=== PATIENT | female | born 1970 | race Caucasian/White ===

== ENCOUNTER → 2017-10-05 09:58 | Outpatient (CLI) | payer OTHER, SELFPAY ==
[2017-10-05 10:41] LABS: Hemoglobin A1c 8.3 % (4.2-6.3)
[2017-10-05 10:46] LABS: ALB/GLOB Ratio 0.9 RATIO (0.9-2.4); AST(SGOT) 12 U/L (15-37); Alanine Aminotransfer ALT/SGPT 24 U/L (13-56); Albumin, Serum 3.3 g/dL (3.2-5.0); Alkaline Phosphatase 88 U/L (45-117); Anion Gap 7 (5-15); BUN 14 mg/dL (7-18); BUN/Creat Ratio 15.7 RATIO (10-20); Calcium,Total 8.9 mg/dL (8.5-10.1); Chloride 104 mmol/L (98-107); Cholesterol 173 mg/dL (200); Creatinine, Serum 0.89 mg/dL (0.55-1.02); EST Glomerular Filtration Rate 72 mL/min (>60); Est Glom Filt Rate - Afr Amer 87 mL/min (>60); Globulin 3.8 g/dL (2.2-4.2); Glucose 258 mg/dL (74-106); High Density Lipoprotein 64 mg/dL; Potassium 4.6 mmol/L (3.5-5.1); Protein, Total 7.1 g/dL (6.4-8.2); Sodium Level 141 mmol/L (136-145); Triglycerides 88 mg/dL; Very Low Density Lipoprotein 18 mg/dL (5-40)
== END ==
PROVIDERS: Visit Provider Nurse Practitioner
DX: E11.69 Type 2 diabetes mellitus with other specified complication (principal); E78.5 Hyperlipidemia, unspecified
CPT/HCPCS: 36415; 80053; 80061; 83036

== ENCOUNTER → 2018-05-03 10:48 | Outpatient (CLI) | payer OTHER, SELFPAY ==
[2018-01-06 10:44] VITALS: BMI 40.6
[2018-05-03 11:49] LABS: Hemoglobin A1c 8.6 % (4.2-6.3)
[2018-05-03 11:50] LABS: Microalbumin,Random Urine 5.7 mg/L (NO RANGE EST.); Microalbumin:Creatinine Ratio 5.4 mg/g CRE (<30 mg/g CRE)
[2018-05-03 12:01] LABS: ALB/GLOB Ratio 0.9 RATIO (0.9-2.4); AST(SGOT) 11 U/L (15-37); Alanine Aminotransfer ALT/SGPT 22 U/L (13-56); Albumin, Serum 3.3 g/dL (3.2-5.0); Alkaline Phosphatase 94 U/L (45-117); Anion Gap 5 (5-15); BUN 19 mg/dL (7-18); BUN/Creat Ratio 24.3 RATIO (10-20); Calcium,Total 8.6 mg/dL (8.5-10.1); Chloride 107 mmol/L (98-107); Cholesterol 175 mg/dL (200); Creatinine, Serum 0.78 mg/dL (0.55-1.02); EST Glomerular Filtration Rate 84 mL/min (>60); Est Glom Filt Rate - Afr Amer 101 mL/min (>60); Globulin 3.7 g/dL (2.2-4.2); Glucose 174 mg/dL (74-106); High Density Lipoprotein 60 mg/dL; Sodium Level 141 mmol/L (136-145); Triglycerides 78 mg/dL; Very Low Density Lipoprotein 16 mg/dL (5-40)
[2018-05-03 13:02] LABS: T4 Free Direct 1.67 ng/dL (0.76-1.46); Thyroid Stim Hormone (TSH) 0.05 uIU/mL (0.358-3.74)
--- OUTSIDE RECORDS SUMMARY | 2018-07-05 21:06 | XMS RPT_ITS ---
:1970 Author Organization OHIP Support Name Relationship Address Phone Hinojosa, Christen Unavailable Unavailable + HINOJOSA, CHRISTEN Unavailable [address] + [place] [address] [employer] Unavailable [address] [phone] [place] [address] HIONJOSA, CHRISTEN Unavailable [address] + [place] [address] [employer] Unavailable [address] [phone] [place] [address] Hinojosa, Christen Unavailable Unavailable + Hinojosa, Christen Unavailable Unavailable + HINOJOSA, CHRISTEN Unavailable [address] + [place] [address] [employer] Unavailable [address] +[phone] [place] [address] Hinojosa, Christen Unavailable Unavailable + Hinojosa, Christen Unavailable Unavailable + Hinojosa, Christen Unavailable Unavailable + Hinojosa, Christen Unavailable Unavailable + Hinojosa, Christen Unavailable Unavailable + Hinojosa, Christen Unavailable Unavailable + Hinojosa, Christen Unavailable Unavailable + HINOJOSA, CHRISTEN Unavailable [address] + [place] [address] [employer] Unavailable [address] +[phone] [place] [address] HINOJOSA, CHRISTEN Unavailable [address] + [place] [address] [employer] Unavailable [address] +[phone] [place] [address] Hinojosa, Christen Unavailable Unavailable + HINOJOSA, CHRISTEN Unavailable [address] + [place] [address] [facility] Unavailable [address] + [place] [address] HINOJOSA, CHRISTEN Unavailable [address] + [place] [address] [facility] Unavailable [address] + [place] [address] HinojosaCathie njen Unavailable Unavailable + Care Team Providers Name Role Phone RICH, CONCHA Referring Unavailable RICH, CONCHA Primary Care Unavailable PROVIDER, UNKNOWN Attending Unavailable Chepe Blanchard Attending Unavailable RICH, CONCHA Referring Unavailable RICH, CONCHA Primary Care Unavailable Chepe Blanchard Attending Unavailable RICH, CONCHA Referring Unavailable RICH, CONCHA Primary Care Unavailable RICH, CONCHA Referring Unavailable RICH, CONCHA Primary Care Unavailable Cinthya Richter Attending Unavailable RICH, CONCHA Referring Unavailable RICH, CONCHA Primary Care Unavailable Chey Morris Attending Unavailable Rober Cinthya Attending Unavailable RICH, CONCHA Referring Unavailable RICH, CONCHA Primary Care Unavailable RICH, CONCHA Referring Unavailable RICH, CONCHA Primary Care Unavailable Rober, Cinthya Attending Unavailable Frangiaeri Og Attending Unavailable RICH, CONCHA Referring Unavailable RICH, CONCHA Primary Care Unavailable Frangiamore, Og Attending Unavailable RICH, CONCHA Referring Unavailable Rich, Concha Primary Care Unavailable CHEY GIFFORD Attending Unavailable RICH, CONCHA Referring Unavailable RICH, CONCHA Primary Care Unavailable Rich, Concha Attending Unavailable RICH, CONCHA Referring Unavailable Rich, Concha Primary Care Unavailable OGCHEY VELASCO Attending Unavailable RICH, CONCHA Referring Unavailable RICH, CONCHA Primary Care Unavailable Kimberly Rosales STRINGED INSTRUMENT ASSEMBLER-C Attending Unavailable Kimberly Rosales STRINGED INSTRUMENT ASSEMBLER-C Referring Unavailable SLOAN IRIZARRY Primary Care Unavailable Kimberly Rosales STRINGED INSTRUMENT ASSEMBLER-C Attending Unavailable DOCTOR, OUT OF TOWN Referring Unavailable Kimberly Rosales STRINGED INSTRUMENT ASSEMBLER-C Attending Unavailable DOCTOR, OUT OF TOWN Referring Unavailable Kimberly Rosales STRINGED INSTRUMENT ASSEMBLER-C Attending Unavailable DOCTOR, OUT OF TOWN Referring Unavailable SLOAN IRIZARRY Primary Care Unavailable Kimberly Rosales STRINGED INSTRUMENT ASSEMBLER-C Attending Unavailable Kimberly Rosales STRINGED INSTRUMENT ASSEMBLER-C Referring Unavailable SLOAN IRIZARRY Primary Care Unavailable Kimberly Rosales STRINGED INSTRUMENT ASSEMBLER-C Attending Unavailable DOCTOR, OUT OF TOWN Referring Unavailable Kimberly Rosales STRINGED INSTRUMENT ASSEMBLER-C Attending Unavailable DOCTOR, OUT OF TOWN Referring Unavailable PROBLEMS PROBLEMS DATE TYPE CONDITION / CODE ATTENDING STATUS SOURCE 05/03/2018 Unknown E10.65 - Type 1 Kimberly Rosales Active [facility] diabetes mellitus J STRINGED INSTRUMENT ASSEMBLER-C Community with hyperglycemia / Hospital E10.65(ICD-10) Repository 04/23/2018 Admitting Type 2 diabetes Keshawn Concha [facility] mellitus with System diabetic Repository polyneuropathy / E11.42(ICD-10) 04/23/2018 Admitting Abnormal Keshawn Concha [facility] Diagnosis electromyogram [EMG] System / R94.131(ICD-10) Repository 04/23/2018 Admitting Abnormal results of Keshawn Concha [facility] Diagnosis function studies of System prph nervous sys / Repository R94.138(ICD-10) 11/30/2017 Admitting Bilateral primary Frangiamore, Active [facility] Diagnosis osteoarthritis of Og System knee / M17.0(ICD-10) Repository 11/30/2017 Admitting Presence of insulin Frangiamore, Active [facility] Diagnosis pump (external) Og System (internal) / Repository Z96.41(ICD-10) 11/30/2017 Admitting Allergy status to Frangiamore, Active [facility] Diagnosis narcotic agent Og System status / Repository Z88.5(ICD-10) 11/30/2017 Admitting Allergy status to Frangiamore, Active [facility] Diagnosis penicillin / Og System Z88.0(ICD-10) Repository 11/30/2017 Admitting Allergy status to Frangiamore, Active [facility] Diagnosis other antibiotic Og System agents status / Repository Z88.1(ICD-10) 11/30/2017 Admitting Hypothyroidism, Frangiamore, Active [facility] Diagnosis unspecified / Og System E03.9(ICD-10) Repository 11/30/2017 Admitting Obesity, unspecified Frangiamore, Active [facility] Diagnosis / E66.9(ICD-10) Og System Repository 11/30/2017 Admitting Body mass index Frangiamore, Active [facility] Diagnosis (BMI) 39.0-39.9, Og System adult / Repository Z68.39(ICD-10) 11/30/2017 Admitting Type 1 diabetes Frangiamore, Active [facility] Diagnosis mellitus without Og System complications / Repository E10.9(ICD-10) 11/30/2017 Admitting Essential (primary) Frangiamore, Active [facility] Diagnosis hypertension / Og System I10(ICD-10) Repository 11/30/2017 Admitting Nonrheumatic aortic Frangiamore, Active [facility] Diagnosis (valve) stenosis / Og System I35.0(ICD-10) Repository 11/30/2017 Admitting Hyperlipidemia, Frangiamore, Active [facility] Diagnosis unspecified / Og System E78.5(ICD-10) Repository 11/30/2017 Admitting Derang of post horn Frangiamore, Active [facility] Diagnosis of medial mensc d/t Og System old tear/inj, l knee Repository / M23.222(ICD-10) 11/30/2017 Admitting Other synovitis and Frangiamore, Active [facility] Diagnosis tenosynovitis, left Og System lower leg / Repository M65.862(ICD-10) 11/30/2017 Admitting Chondromalacia, left Frangiamore, Active [facility] Diagnosis knee / Og System M94.262(ICD-10) Repository 11/30/2017 Admitting Patellofemoral Frangiamore, Active [facility] Diagnosis disorders, left knee Og System / M22.2X2(ICD-10) Repository 11/30/2017 Admitting Other internal Frangiamore, Active [facility] Diagnosis derangements of left Og System knee / Repository M23.8X2(ICD-10) 11/30/2017 Admitting Bradycardia, Frangiamore, Active [facility] Diagnosis unspecified / Og System R00.1(ICD-10) Repository 11/30/2017 Admitting Old myocardial Frangiamore, Active [facility] Diagnosis infarction / Og System I25.2(ICD-10) Repository 11/30/2017 Admitting Major depressive Frangiamore, Active [facility] Diagnosis disorder, single Og System episode, unspecified Repository / F32.9(ICD-10) 11/30/2017 Admitting Alcohol dependence, Frangiamore, Active [facility] Diagnosis in remission / Og System F10.21(ICD-10) Repository 11/30/2017 Admitting Acquired absence of Frangiamore, 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 Og System uterus / Repository Z90.710(ICD-10) 11/30/2017 Admitting Oth allergy status, Frangiamore, Active [facility] Diagnosis oth than to drugs Og System and biolg substances Repository / Z91.09(ICD-10) 11/30/2017 Admitting Allergy status to Frangiamore, Active [facility] Diagnosis sulfonamides status Og System / Z88.2(ICD-10) Repository 11/30/2017 Admitting Personal history of Frangiamore, Active [facility] Diagnosis nicotine dependence Og System / Z87.891(ICD-10) Repository 11/25/2017 Admitting Encounter for other Frangiamore, Active [facility] Diagnosis preprocedural Og System examination / Repository Z01.818(ICD-10) 11/25/2017 Admitting Chondromalacia Frangiamore, Active [facility] Diagnosis patellae, left knee Og System / M22.42(ICD-10) Repository 11/25/2017 Admitting Other specified Frangiamore, Active [facility] Diagnosis joint disorders, Og System left knee / Repository M25.862(ICD-10) 11/25/2017 Admitting Derang of unsp Frangiamore, Active [facility] Diagnosis medial meniscus due Og System to old tear/inj, l Repository knee / M23.204(ICD-10) 11/12/2017 Admitting Post-traumatic Arturo, Active [facility] Diagnosis stress disorder, Chey System unspecified / Repository F43.10(ICD-10) 11/12/2017 Admitting Adjustment disorder Arturo, Active [facility] Diagnosis with mixed anxiety Chey System and depressed mood / Repository F43.23(ICD-10) 11/12/2017 Admitting Alcohol dependence, Arturo, Active [facility] Diagnosis uncomplicated / Chey System F10.20(ICD-10) Repository 11/12/2017 Admitting Other psychoactive Morris, Active [facility] Diagnosis substance abuse, Chey System uncomplicated / Repository F19.10(ICD-10) 11/03/2017 Admitting Type 2 diabetes Cinthya Richter Active [facility] Diagnosis mellitus without System complications / Repository E11.9(ICD-10) 11/03/2017 Admitting Pain in left knee / Rober, Cinthya Active [facility] Diagnosis M25.562(ICD-10) System Repository 10/21/2017 Admitting Pain in unspecified Burkam, Active [facility] Diagnosis knee / Chepe System M25.569(ICD-10) Repository 10/05/2017 Unknown E10.9 - Type 1 Shook, Kimberly Active [facility] diabetes mellitus J STRINGED INSTRUMENT ASSEMBLER-C Community without Hospital complications / Repository E10.9(ICD-10) 10/05/2017 Unknown E11.69 - Type 2 Shook, Kimberly Active [facility] diabetes mellitus J STRINGED INSTRUMENT ASSEMBLER-C Community with other specified Hospital complication / Repository E11.69(ICD-10) 10/05/2017 Unknown E78.5 - Shook, Kimberly Active [facility] Hyperlipidemia, J STRINGED INSTRUMENT ASSEMBLER-C Community unspecified / Hospital E78.5(ICD-10) Repository 10/05/2017 Unknown E10.69 - Type 1 Shook, Kimberly Active [place] diabetes mellitus J STRINGED INSTRUMENT ASSEMBLER-C Community with other specified Hospital complication / Repository E10.69(ICD-10) 09/02/2017 Admitting Unspecified Burkam, Active [facility] Diagnosis osteoarthritis, Chepe System unspecified site / Repository M19.90(ICD-10) 06/06/2017 Admitting Sprain of Unknown Active [facility] Diagnosis unspecified ligament System of left ankle, init Repository encntr / S93.402A(ICD-10) 06/06/2017 Admitting Abrasion of left Unknown Active [facility] Diagnosis elbow, initial System encounter / Repository S50.312A(ICD-10) 06/06/2017 Admitting Fall (on)(from) Unknown Active [facility] Diagnosis sidewalk curb, System initial encounter / Repository W10.1XXA(ICD-10) 06/06/2017 Admitting Disorder of thyroid, Unknown Active [facility] Diagnosis unspecified / System E07.9(ICD-10) Repository 06/06/2017 Admitting terminal operations supervisor (current) Unknown Active [facility] Diagnosis use of insulin / System Z79.4(ICD-10) Repository 06/06/2017 Admitting terminal operations supervisor (current) Unknown Active [facility] Diagnosis use of aspirin / System Z79.82(ICD-10) Repository 06/06/2017 Admitting Other nonmedicinal Unknown Active [facility] Diagnosis substance allergy System status / Repository Z91.048(ICD-10) 06/06/2017 Admitting Unspecified injury Unknown Active [facility] Diagnosis of left ankle, System initial encounter / Repository S99.912A(ICD-10) PROCEDURES PROCEDURES No Procedure Records FoundRESULTS RESULTS ENDOCRINOLOGY VISIT Observed: 05/03/2018 Status: F Source: [place] REPORT 7:23 PM [facility] REPOSITORY [facility] [address] [place] [address] [address] [place] [address] OFFICE VISIT Date of Service: 05/03/18 MR#: [id number] Acct: [id number] Name: ISADORA LAYTON Rep #: [id number] : 1970 Provider: Kimberly Rosales NP Age/Sex: 48/F [place] [facility] [place]: Signed HPI History of present illness Isadora Layton is a 48 year old female who presents for follow up of diabetes type 1. Diagnosed in 1996. Continues on insulin pump therapy. Changes infusion site every 3 days. Denies any issues with skin irritation or infection. Reports checking BG consistently Has recently started 670g with sensor and is using automode. Is happy with the pump and feels her control has improved. She has made some changes in her I/C ratio which has helped. Has had issues with her sensors . Reports sensors set for alarm at low but yet she is getting alarms before you. She feels the sensor and alarms keep her up at night. She states she does calibrate before bedtime. Basal rate 12m=1.4 I/C ratio 12m=5.5 , 2pm=6.0 ISF=35 At time of visit: -Pt denies symptoms of hypertensive emergency (CP,SOB,DUNCAN, or blurred vision) and hypotension(dizziness or lightheadedness) -Pt denies symptoms of hypoglycemia ( sweaty, confusion, anxiety, tremor, hunger, palpitations) and hyperglycemia ( polydipsia, polyuria) -Pt denies potential medication adverse effect. Hypoglycemia Aware of hypoglycemia: When awake Able to self treat low BG: Yes Frequent low Blood sugar: No Has supply of glucagon: Yes Diet 3 meals daily, snacks Occ skips breakfast. 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 am average 148 12n 140-170 5pm 150-170 9pm 138-150 Exam Const General: no acute distress, comfortable Nutritional Appearance: overweight Orientation: oriented x3 HENVT Head: normal to inspection, atraumatic Ears: hearing grossly normal bilaterally Face and sinus: normal facial exam Mouth: oral mucosae normal, moist mucous membranes Teeth and gingiva: dentition normal Eyes General: appearance normal, both eyes and all related structures Eyelids: eyelids normal Conjunctivae: conjunctivae normal Sclera: sclerae normal Pupils: PERRL Neck Neck: normal visual inspection, no lymphadenopathy Resp Effort AND Inspection: normal respiratory effort, able to speak in complete sentences, symmetric chest movement Auscultation: Bilateral: Clear to Auscultation Cardio Rate: regular rate Rhythm: regular rhythm Heart Sounds: S1 normal, S2 normal, no gallops, no murmurs GI Inspection: normal to inspection, obesity Auscultation: normal bowel sounds Palpation: soft Skin General: no rashes or lesions noted Wounds: no wounds Diabetic Foot Pulses: L dorsalis pedis pulse: normal, R dorsalis pedis pulse: normal Monofilament test: Left foot: normal, Right foot: normal Neuro General: gait normal Cognition: normal cognition Speech: speech normal Gait: normal gait Extrem General: normal to inspection, normal capillary refill Psych Appearance: well kempt Mental Status: mental status grossly normal Mood: congruent mood Affect: normal affect Speech and Movement: speech and movement normal Attitude: cooperative Thought Process: normal Thought Content: normal Judgment: judgment good Type: type 1, insulin-requiring Glucose control symptoms: Reports nocturnal hypoglycemia Weight and fatigue symptoms: Denies snoring Cardiopulmonary symptoms: Denies chest pain at rest, dyspnea on exertion, lightheadedness or myalgias GI symptoms: Denies constipation, diarrhea, nausea/dyspepsia or vomiting Other symptoms: Denies blurry vision or change in vision Pertinent visit history: Denies recent hospital admission, recent visit to ER, recent DKA or recent 911 calls Intake Vital Signs05/03/18 Height 5 ft 3 in 05/03/18 Weight: 230 lb 6 oz 05/03/18 Body Mass Index (BMI) 40.8 05/03/18 Blood Pressure 153/104 H 05/03/18 Blood Pressure Location Lt popliteal 05/03/18 Blood Pressure Position Sitting Intake Visit Reasons: Diabetes follow-up 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 Accompanied by: Self Allergies codeine Allergy (Severe, Verified 05/03/18 11:23) Unknown Penicillins Allergy (Severe, Verified 05/03/18 11:23) Unknown Sulfa (Sulfonamide Antibiotics) Allergy (Severe, Verified 05/03/18 11:23) Unknown Medications blood sugar diagnostic strips See Dose Instructions .ROUTE .MEDSUPPLY #20 ea 05/11/17 [History Confirmed 05/03/18] levothyroxine 150 mcg tablet See Rx Instructions PO .COMPLEX #30 tab 06/29/17 [Rx Confirmed 05/03/18] insulin aspart U- 100 100 unit/mL subcutaneous solution See Rx Instructions SC QDAY #30 ml 10/19/17 [Rx Confirmed 05/03/18] flaxseed oil 1,000 mg capsule 1,000 mg PO BID 01/06/18 [History Confirmed 05/03/18] omega-3 fatty acids 1,250 mg capsule 1,250 mg PO DAILY 01/06/18 [History Confirmed 05/03/18] Nurse's Note: blood sugars : low : 40's high : 398 [facility] Medical History Achilles bursitis (Acute) Corns and callosities (Acute) Diabetes type 1, controlled (Acute) H/O alcohol abuse (Acute) H/O: hysterectomy (Acute) Heart murmur (Acute) Hypothyroidism (Acute) Seasonal allergies (Acute) Surgical History S/P arthroscopic surgery of left knee (Acute) Family History Mother Breast cancer Social History Smoking Status: Former smoker quit date: 04/13/15 second hand exposure: No alcohol intake: former substance use type: does not use ROS Const Constitutional: Positive for fatigue; no anorexia, body ache, chills, fever(s), frequent falls, decreased energy, malaise, night sweats, weakness, weight change, sleep problems, abnormal sleep pattern, change in appetite, other, headache(s), snoring or excessive sweating Eyes Eyes: No blurry vision, change in vision, double vision, discharge, dry eyes, bulging eyes, floaters, visual disturbances, eye pain, light sensitivity, spots in vision, tunnel vision or other ENT ENT: Positive for nasal congestion, sinus pressure, sinus pain and nasal discharge; no abnormal hearing, ear pain, ear discharge, ear pressure, hearing loss, tinnitus, dizziness/vertigo, balance problems, nosebleed/epistaxis, nasal obstruction, nose pain, post nasal drip, headache(s), facial pain, dental pain, dry mouth, bad breath, hoarseness, lip swelling, mouth lesions, mouth pain, sore throat, tongue swelling, throat swelling, other, difficulty swallowing or neck pain Resp Respiratory: Positive for cough and wheezing; no change in phlegm color, chest congestion, excessive phlegm production, hemoptysis, pain on inspiration, shortness of breath, pain with cough, snoring, stridor or other Cardio Cardiology: No chest pain at rest, chest pain with exertion, leg pain with exertion, excessive sweating, shortness of breath, dyspnea on exertion, generalized swelling, irregular heart rhythm, lightheadedness, orthopnea, radiating jaw, neck or arm pain, fast heart rate, slow heart rate, palpitations or other Gastro GI: No abdominal pain, belching, bloating, change in bowel habits, change in stool character, coffee ground emesis, constipation, cramping, diarrhea, heartburn, difficulty swallowing, feeling full early, excessive flatus, incontinent of stools, Vomiting blood/hematemesis, blood in stool, loose stools, Black,tarry stools, nausea/dyspepsia, pain with swallowing, vomiting or other Genitourinary-Female: No difficulty urinating, burning urination, painful urination, urinary incontinence, urinary frequency, urinary urgency, urinary hesitancy, urinary retention, blood in urine, Frequent nighttime urination/ nocturia, post void dribbling, suprapubic fullness, side pain, sexual problems, genital lesions, genital itching, hot flashes, abnormal periods, abnormal vaginal bleeding, absent period, painful periods, light periods, heavy periods, difficulty getting , painful intercourse, pelvic pain, vaginal dryness, vaginal odor, Vaginal Itching or other Musc Musculoskeletal: Positive for tingling (bilat feet d/t nueropathy), other (bilat feet feel like they are on fire d/t neuropathy) and numbness (bilat feet d/t neuropathy); no abnormal walking, joint pain, back pain, deformity, joint swelling, limited range of motion, loss of height, muscle cramps, muscle weakness, decreased muscle mass, body aches, neck pain, radiating pain into limb or stiffness Skin Skin: No acne, hair loss, change in hair, nail changes, boil, change in skin color, dry skin, redness, excessive hair growth, yellowing of the skin, lesions, itching, rash, skin pain, skin ulcer, sores, skin swelling, wounds or other Breast Breast: No other Neuro Neurology: Positive for tingling (bilat feet d/t nueropathy) and numbness (bilat feet d/t neuropathy); no frequent falls, weakness, visual disturbances, abnormal hearing, headache(s) or abnormal walking Psych Psychiatric: No abnormal sleep pattern, No change in appetite Endo Endocrine: Positive for fatigue; no other or excessive sweating Aller/Imm Allergy/Immunologic: Positive for wheezing; no lip swelling, tongue swelling, throat swelling or itchy eyes Assessment AND Plan 1. Uncontrolled type 1 diabetes mellitus, with long-term current use of insulin E10.65 Plan REview of download notes she has frequent drop in BG over night. But also notes she is giving correction near bedtime and then has significant drop in BG. We reviewed pattern. Enc not to over correct high Bg. Also frequent low after lunch. I/C ratio adjusted. Enc to call medtronic for sensor replacement. Enc to download insulin pump between visits for review. Labs today Orders Orders: 2. Hyperlipidemia due to type 1 diabetes mellitus E10.69; E78.5 Plan Reports taking flaxseed as discussed. Plan Detail Additional Comments 1. Please schedule follow up in 3 months. 2. Lab work one week before appointment. 3. Discussed importance of regular exercise and recommend starting or continuing a regular exercise program for good health. 4. The patient was encouraged to lose weight for good health 5. The importance of monitoring blood sugar regularly was reviewed. 6. The importance of monitoring the HBA1c level regularly was reviewed. 7. The importance of prper foot care and regularly checking feet to prevent sores and loss of limbs was reviewed. 8. The importance of keeping BP at or below 130/80 to prevent stroke, heart attacks, kidney failure, blindness was reviewed. Spent approximately 30 minutes with patient with over 50% of time spent in discussion and counseling regarding medication adjustment, symptoms and treatment of hypoglycemia, diet adherence, and checking BG before driving. Coding Level of Care Code Off vis,est,level 4 Diagnoses Uncontrolled type 1 diabetes mellitus, with long-term current use of insulin E10.65 Hyperlipidemia due to type 1 diabetes mellitus E10.69; E78.5 05/03/181922 <Electronically signed by Kimberly FERRARI> Date Kimberly FERRARI Cosigner Signature: Date (if applicable) CC: THYROID STIM HORMONE Collected: 05/03/2018 Status: F Source: [place] (TSH) 12:36 PM [facility] REPOSITORY TYPE CODE TESTS RESULT OUT OF RANGE REFERENCE UNITS LAB L501.9520 0.358-3.74 uIU/mL Low TSH 0.05 Performed By: #### L501.9520, L506.0400 #### [facility] [address] [facility]. [place], [place], [address] T4 FREE DIRECT Collected: 05/03/2018 Status: F Source: [place] 12:36 PM [facility] REPOSITORY TYPE CODE TESTS RESULT OUT OF REFERENCE UNITS RANGE LAB L506.0400 0.76-1.46 ng/dL High T4 FREE 1.67 DIRECT Performed By: #### L501.9520, L506.0400 #### [facility] [address] [place], [address] HEMOGLOBIN A1C Collected: 05/03/2018 Status: F Source: [place] 10:59 AM [facility] REPOSITORY TYPE CODE TESTS RESULT OUT OF RANGE REFERENCE UNITS LAB L501.9985 4.2-6.3 % High HGB A1C 8.6 Performed By: #### L501.9985 #### [facility] [address] [facility] [place], [address] MICROALB:CREAT Collected: 05/03/2018 Status: F Source: [facility] UR 10:59 AM [facility] REPOSITORY TYPE CODE TESTS RESULT OUT OF RANGE REFERENCE UNITS LAB L501.1200 NO RANGE EST. mg/dL Normal UR CREAT 105.00 LAB L502.0500 NO RANGE EST. mg/L Normal 5.7 MICROALBUMIN ,UR LAB L502.0600 <30 mg/g CRE mg/g CRE Normal 5.4 MALB:CREAT Performed By: #### L502.0250 #### [facility] [address] [place], [address] COMPREHENSIVE METABOLIC Collected: 05/03/2018 Status: F Source: [place] PROFIL 10:59 AM [facility] REPOSITORY TYPE CODE TESTS RESULT OUT OF RANGE REFERENCE UNITS LAB L501.0100 74-106 mg/dL High GLU 174 Result Comment: Fasting Glucose result greater than or equal to 126 mg/dL suggests DIABETES MELLITUS per A.D.A. criteria. Please note revised GLUCOSE reference range effective 2017. LAB L501.1000 7-18 mg/dL High BUN 19 LAB L501.1100 0.55-1.02 mg/dL Normal CREAT,SERUM 0.78 Result Comment: The validity of the calculated GFR AND GFRAA in patients over 70 years has not been determined. Clinical correlation is essential. LAB L501.1110 >60 mL/min Normal EST GFR 84 Result Comment: Non- GFR Calc LAB L501.1115 >60 mL/min Normal EST GFR - AA 101 Result Comment: GFR Calc LAB L501.1300 10-20 RATIO High BUN/CRE 24.3 LAB L501.1500 6.4-8.2 g/dL T Normal PROT 7.0 LAB L501.1800 3.2-5.0 g/dL Normal ALB 3.3 LAB L501.1950 2.2-4.2 g/dL Normal GLOB 3.7 LAB L501.2000 0.9-2.4 RATIO Normal A/G 0.9 LAB L501.2200 8.5-10.1 mg/dL CA Normal 8.6 LAB L501.4100 15-37 U/L Low AST 11 LAB L501.4305 45-117 U/L Normal ALK P 94 LAB L501.4405 13-56 U/L Normal ALT 22 LAB L501.4600 0.20-1.00 mg/dL T Normal BILI 0.40 LAB L501.5300 136-145 mmol/L NA Normal 141 LAB L501.5600 3.5-5.1 mmol/L K Normal 4.0 LAB L501.5900 98-107 mmol/L CL Normal 107 LAB L501.6100 21.0-32.0 mmol/L Normal CO2 29.0 LAB L501.6200 5-15 Normal GAP 5 Performed By: #### L500.4050, L500.4100 #### [facility] [address] [place], [place], [id number] LIPID PROFILE Collected: 05/03/2018 Status: F Source: [place] 10:59 AM [facility] REPOSITORY TYPE CODE TESTS RESULT OUT OF RANGE REFERENCE UNITS LAB L501.4900 200 mg/dL Normal CHOL 175 Result Comment: <200 mg/dL Desirable 200-240 mg/dL Borderline >240 mg/dL High Risk LAB L501.5000 mg/dL Normal TRIG 78 Result Comment: The drugs N-Acetylcysteine and Metamizole may falsely depress this assay. Serum Triglycerides Reference Interval Normal <150 mg/dL Borderline high 150 - 199 mg/dL High 200 - 499 mg/dL Very High > or = 500 mg/dL LAB L501.6400 mg/dL Normal HDL 60 Result Comment: The drugs N-Acetylcysteine and Metamizole may falsely depress this assay. Reference Range HDL <40 mg/dL Low HDL Cholesterol HDL >or= 60 mg/dL High HDL Cholesterol LAB L501.6500 0-130 mg/dL Normal LDL 99 LAB L501.6600 5-40 mg/dL Normal VLDL 16 Performed By: #### L500.4050, L500.4100 #### [facility] [address] [place], [place], [id number] ENDOCRINOLOGY VISIT Observed: 01/10/2018 Status: F Source: [place] REPORT 11:03 AM [facility] REPOSITORY [facility] [address] [place] [address] OFFICE VISIT Date of Service: 01/06/18 MR#: [id number] Acct: [id number] Name: ISADORA LAYTON Rep #: [id number] : 1970 Provider: Kimberly Rosales NP Age/Sex: 47/F Location: [facility] Status: Signed HPI History of present illness History of present illness Isadora Layton is a 47 year old female who presents for follow up of diabetes type 1. Diagnosed in 1996. Continues on insulin pump therapy. Changes infusion site every 3 days. Denies any issues with skin irritation or infection. Reports checking BG consistently Has recently started 670g with sensor and is using automode. Is happy with the pump and feels her control has improved. She has made some changes in her I/C ratio which has helped. Has had issues with her sensor for the last few weeks. Able to get sensor to initiate today for the first time in several days. Basal rate 12m=1.4 I/C ratio 12m=5.5 , 2pm=6.0 ISF=35 At time of visit: -Pt denies symptoms of hypertensive emergency (CP,SOB,DUNCAN, or blurred vision) and hypotension(dizziness or lightheadedness) -Pt denies symptoms of hypoglycemia ( sweaty, confusion, anxiety, tremor, hunger, palpitations) and hyperglycemia ( polydipsia, polyuria) -Pt denies potential medication adverse effect. Hypoglycemia Aware of hypoglycemia: When awake Able to self treat low BG: Yes Frequent low Blood sugar: No Has supply of glucagon: Yes Diet 3 meals daily, snacks Occ skips breakfast. 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 am average 148 12n 140-170 5pm 150-170 9pm 138-150 Exam Const General: no acute distress, comfortable Nutritional Appearance: overweight Orientation: oriented x3 HENMT Head: normal to inspection, atraumatic Ears: hearing grossly normal bilaterally Face and sinus: normal facial exam Mouth: oral mucosae normal, moist mucous membranes Teeth and gingiva: dentition normal Eyes General: appearance normal, both eyes and all related structures Eyelids: eyelids normal Conjunctivae: conjunctivae normal Sclera: sclerae normal Pupils: PERRL Neck Neck: normal visual inspection, no lymphadenopathy Resp Effort AND Inspection: normal respiratory effort, able to speak in complete sentences, symmetric chest movement Auscultation: Bilateral: Clear to Auscultation Cardio Rate: regular rate Rhythm: regular rhythm Heart Sounds: S1 normal, S2 normal, no gallops, no murmurs GI Inspection: normal to inspection, obesity Auscultation: normal bowel sounds Palpation: soft Skin General: no rashes or lesions noted Wounds: no wounds Diabetic Foot Pulses: L dorsalis pedis pulse: normal, R dorsalis pedis pulse: normal Monofilament test: Left foot: normal, Right foot: normal Neuro General: gait normal Cognition: normal cognition Speech: speech normal Gait: normal gait Extrem General: normal to inspection, normal capillary refill Psych Appearance: well kempt Mental Status: mental status grossly normal Mood: congruent mood Affect: normal affect Speech and Movement: speech and movement normal Attitude: cooperative Thought Process: normal Thought Content: normal Judgment: judgment good Weight and fatigue symptoms: Denies snoring Cardiopulmonary symptoms: Denies chest pain at rest, dyspnea on exertion, lightheadedness or myalgias GI symptoms: Denies constipation, diarrhea, nausea/dyspepsia or vomiting Other symptoms: Denies blurry vision or change in vision Intake Vital Signs01/06/18 Height 5 ft 3 in 01/06/18 Weight: 229 lb 4 oz 01/06/18 Body Mass Index (BMI) 40.6 01/06/18 Blood Pressure 140/90 H 01/06/18 Blood Pressure Location Rt popliteal 01/06/18 Blood Pressure Position Sitting Intake Visit Reasons: FOLLOW 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 Accompanied by: Self Allergies codeine Allergy (Severe, Verified 01/06/18 10:41) Unknown Penicillins Allergy (Severe, Verified 01/06/18 10:41) Unknown Sulfa (Sulfonamide Antibiotics) Allergy (Severe, Verified 01/06/18 10:41) Unknown Medications blood sugar diagnostic strips See Dose Instructions .ROUTE .MEDSUPPLY #20 ea 05/11/17 [History Confirmed 01/06/18] levothyroxine 150 mcg tablet See Rx Instructions PO .COMPLEX #30 tab 06/29/17 [Rx Confirmed 01/06/18] insulin aspart U- 100 100 unit/mL subcutaneous solution See Rx Instructions SC QDAY #30 ml 10/19/17 [Rx Confirmed 01/06/18] flaxseed oil 1,000 mg capsule 1,000 mg PO BID 01/06/18 [History Confirmed 01/06/18] omega-3 fatty acids 1,250 mg capsule 1,250 mg PO DAILY 01/06/18 [History Confirmed 01/06/18] Nurse's Note: blood sugars : low : 56 high :467 [facility] Medical History Achilles bursitis (Acute) Corns and callosities (Acute) Diabetes type 1, controlled (Acute) H/O alcohol abuse (Acute) Heart murmur (Acute) Hypothyroidism (Acute) Seasonal allergies (Acute) Surgical History H/O: hysterectomy (Acute) S/P arthroscopic surgery of left knee (Acute) Family History Mother Breast cancer Social History Smoking Status: Former smoker quit date: 04/13/15 second hand exposure: No alcohol intake: former substance use type: does not use ROS Const Constitutional: No anorexia, body ache, chills, fatigue, fever(s), frequent falls, decreased energy, malaise, night sweats, weakness, weight change, sleep problems, abnormal sleep pattern, change in appetite, other, headache(s), snoring or excessive sweating Eyes Eyes: No blurry vision, change in vision, double vision, discharge, dry eyes, bulging eyes, floaters, visual disturbances, eye pain, light sensitivity, spots in vision, tunnel vision or other ENT ENT: Positive for nasal congestion and nasal discharge; no abnormal hearing, ear pain, ear discharge, ear pressure, hearing loss, tinnitus, dizziness/vertigo, balance problems, nosebleed/epistaxis, nasal obstruction, nose pain, sinus pressure, sinus pain, post nasal drip, headache(s), facial pain, dental pain, dry mouth, bad breath, hoarseness, lip swelling, mouth lesions, mouth pain, sore throat, tongue swelling, throat swelling, other, difficulty swallowing or neck pain Resp Respiratory: No cough, change in phlegm color, chest congestion, excessive phlegm production, hemoptysis, pain on inspiration, shortness of breath, pain with cough, snoring, stridor, wheezing or other Cardio Cardiology: No chest pain at rest, chest pain with exertion, leg pain with exertion, excessive sweating, shortness of breath, dyspnea on exertion, generalized swelling, irregular heart rhythm, lightheadedness, orthopnea, radiating jaw, neck or arm pain, fast heart rate, slow heart rate, palpitations or other Gastro GI: No abdominal pain, belching, bloating, change in bowel habits, change in stool character, coffee ground emesis, constipation, cramping, diarrhea, heartburn, difficulty swallowing, feeling full early, excessive flatus, incontinent of stools, Vomiting blood/hematemesis, blood in stool, loose stools, Black,tarry stools, nausea/dyspepsia, pain with swallowing, vomiting or other Genitourinary-Female: No difficulty urinating, burning urination, painful urination, urinary incontinence, urinary frequency, urinary urgency, urinary hesitancy, urinary retention, blood in urine, Frequent nighttime urination/ nocturia, post void dribbling, suprapubic fullness, side pain, sexual problems, genital lesions, genital itching, hot flashes, abnormal periods, abnormal vaginal bleeding, absent period, painful periods, light periods, heavy periods, difficulty getting , painful intercourse, pelvic pain, vaginal dryness, vaginal odor, Vaginal Itching or other Musc Musculoskeletal: No abnormal walking, joint pain, back pain, deformity, joint swelling, limited range of motion, loss of height, muscle cramps, muscle weakness, decreased muscle mass, body aches, neck pain, numbness, radiating pain into limb, stiffness, tingling or other Skin Skin: No acne, hair loss, change in hair, nail changes, boil, change in skin color, dry skin, redness, excessive hair growth, yellowing of the skin, lesions, itching, rash, skin pain, skin ulcer, sores, skin swelling, wounds or other Breast Breast: No other Neuro Neurology: No frequent falls, weakness, visual disturbances, abnormal hearing, headache(s), abnormal walking, numbness or tingling Psych Psychiatric: No abnormal sleep pattern, No change in appetite Endo Endocrine: No fatigue, other or excessive sweating Aller/Imm Allergy/Immunologic: No lip swelling, tongue swelling, throat swelling, wheezing or itchy eyes Assessment AND Plan Problems 1. Uncontrolled type 1 diabetes mellitus, with long-term current use of insulin E10.65 2. Hypothyroidism (acquired) E03.9 3. Hyperlipidemia due to type 1 diabetes mellitus E10.69; E78.5 Plan Diabetes: Overcorrecting, vito at night. I have changed her correction to 1-50. She alsoneeds lower basal set during sleep. Reset basal to 12m=1.3, 6am=1.4, 10pm=1.3 Thyroid: TSH 0.72. No change in dosage. Hyperlipidemia: Tolerating flaxseed well. LDL 91. Not willing to use statin. Orders Orders: Medications New: Plan Detail Additional Comments 1. Please schedule follow up in 3 months. 2. Lab work one week before appointment. 3. Discussed importance of regular exercise and recommend starting or continuing a regular exercise program for good health. 4. The patient was encouraged to lose weight for good health 5. The importance of monitoring blood sugar regularly was reviewed. 6. The importance of monitoring the HBA1c level regularly was reviewed. 7. The importance of prper foot care and regularly checking feet to prevent sores and loss of limbs was reviewed. 8. The importance of keeping BP at or below 130/80 to prevent stroke, heart attacks, kidney failure, blindness was reviewed. Spent approximately 30 minutes with patient with over 50% of time spent in discussion and counseling regarding medication adjustment, symptoms and treatment of hypoglycemia, diet adherence, and checking BG before driving. Coding Level of Care Code Off vis,est,level 4 Diagnoses Uncontrolled type 1 diabetes mellitus, with long-term current use of insulin E10.65 Hypothyroidism (acquired) E03.9 Hyperlipidemia due to type 1 diabetes mellitus E10.69; E78.5 01/10/18 1103 <Electronically signed by Kimberly FERRARI> Date Kimberly FERRARI Cosigner Signature: Date (if applicable) CC: GLUCOSE,BEDSIDE Collected: 11/30/2017 Status: F Source: [facility] 9:00 AM SYSTEM REPOSITORY TYPE CODE TESTS RESULT OUT OF RANGE REFERENCE UNITS LAB BGLU 70-100 mg/dL High 120 Glucose,Beds froylan Result Comment: Test performed by glucose meter. Results may be 10%-15% lower than serum/plasma values. (CLIA ID [id number]) Performed By: #### BGLU #### [facility] [address] [facility] [place] [address] GLUCOSE,BEDSIDE Collected: 11/30/2017 Status: F Source: [facility] 6:39 AM SYSTEM REPOSITORY TYPE CODE TESTS RESULT OUT OF RANGE REFERENCE UNITS LAB BGLU 70-100 mg/dL High 131 Glucose,Beds froylan Result Comment: Test performed by glucose meter. Results may be 10%-15% lower than serum/plasma values. (CLIA ID [id number]) Performed By: #### BGLU #### [facility] [address] [facility] [place] [address] MRI LOW EXT JOINT W/O Observed: 10/22/2017 Status: F Source: [facility] CONTRAST LEFT 7:20 AM SYSTEM REPOSITORY Patient Name: ISADORA LAYTON MRI Exam Date/Time 10/21/2017 16:23:20 EDT Exam MRI Low Ext Joint w/o Contrast Left Ordering Physician MD BLANCHARD BENJAMIN Accession Number [id number] CPT4 Codes 45391 () Reason For Exam pain Report Examination: MRI left knee Clinical Indication: Knee pain concern for meniscal tear Comparison: None Findings: Multiplanar multisequence MRI images were obtained through the left knee without intravenous contrast. No osseous contusion or fracture. Oblique tear at the root posterior horn which nearly transects the meniscus best seen on sagittal series 5 image 12 and coronal series 8 image 15. Mild meniscal myxoid degeneration. Medial compartment articular cartilage demonstrates mild articular cartilage thinning. Cruciate, capsular, and collateral ligaments intact. Extensor mechanism demonstrates no abnormality. Minimal prepatellar soft tissue swelling. Lateral meniscus normal in morphology and signal without tear. Lateral compartment articular cartilage demonstrates mild articular cartilage thinning. Small osteophyte central femoral condyle. Tiny knee joint effusion. No De Anda's cyst. Patellofemoral articular cartilage demonstrates moderate articular cartilage thinning. There are small full-thickness fissures along the lateral facet more superiorly with marginal chondromalacia. Tiny patellofemoral marginal osteophytes. Minimal degenerative subchondral edema. 1.5 cm offset between the tibial tubercle and trochlear groove. Impression: 1. Oblique vertical tear root posterior horn medial meniscus nearly transecting the meniscus with minimal meniscal degeneration. 2. Moderate patellofemoral articular cartilage thinning with more focal chondromalacia and full-thickness fissuring lateral facet superiorly. 3. Trace knee joint effusion. Report Dictated on Workstation: [id number] Final Dictated: 10/22/2017 7:20 am Dictating Physician: MD LIZARRAGA ANTHONY J Signed Date and Time: 10/22/2017 7:24 am Signed by: MD LIZARRAGA ANTHONY J Transcribed Date and Time: 10/22/2017 7:20 ENDOCRINOLOGY VISIT Observed: 10/18/2017 Status: F Source: [place] REPORT 10:12 AM [facility] REPOSITORY [facility] [address] [place] [address]. [address] [place] [address] OFFICE VISIT Date of Service: 10/05/17 MR#: [id number] Acct: [id number] Name: ISADORA LAYTON Rep #: [id number] : 1970 Provider: Kimberly Rosales NP Age/Sex: 47/F Location[place] [facility] Status: Signed HPI History of present illness HPI History of present illness Isadora Layton is a 47 year old female who presents for follow up of diabetes type 1. Diagnosed in 1996. Continues on insulin pump therapy. Changes infusion site every 3 days. Denies any issues with skin irritation or infection. Reports checking BG consistently Has recently started 670g with sensor and is using automode. Is happy with the pump and feels her control has improved. She has made some changes in her I/C ratio which has helped. Basal rate 12m=1.4 I/C ratio 12m=5.5 , 2pm=6.0 ISF=35 At time of visit: -Pt denies symptoms of hypertensive emergency (CP,SOB,DUNCAN, or blurred vision) and hypotension(dizziness or lightheadedness) -Pt denies symptoms of hypoglycemia ( sweaty, confusion, anxiety, tremor, hunger, palpitations) and hyperglycemia ( polydipsia, polyuria) -Pt denies potential medication adverse effect. Hypoglycemia Aware of hypoglycemia: When awake Able to self treat low BG: Yes Frequent low Bloo sugar: No Has supply of glucagon: Yes Diet 3 meals daily, snacks Occ skips breakfast. 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 Insulin pump download 180 70 % time Having issues with pump asking for calibration all night long. Type: type 1 Glucose control symptoms: Reports high post-meal glucose Weight and fatigue symptoms: Denies snoring Cardiopulmonary symptoms: Reports chest pain with activity; denies myalgias, chest pain at rest, dyspnea on exertion or lightheadedness GI symptoms: Denies constipation, diarrhea, nausea/dyspepsia or vomiting Other symptoms: Denies blurry vision or change in vision Self monitoring: Yes Glucometer type: Contour next. Dietary compliance: Diabetes: good Diabetes education in past year: Yes Glucose testing: demonstrates correct use of meter, understands testing schedule Exam Const General: no acute distress, comfortable Nutritional Appearance: overweight Orientation: oriented x3 HENMT Head: normal to inspection, atraumatic Ears: hearing grossly normal bilaterally Face and sinus: normal facial exam Mouth: oral mucosae normal, moist mucous membranes Teeth and gingiva: dentition normal Eyes General: appearance normal, both eyes and all related structures Eyelids: eyelids normal Conjunctivae: conjunctivae normal Sclera: sclerae normal Pupils: PERRL Neck Neck: normal visual inspection, no lymphadenopathy Resp Effort AND Inspection: normal respiratory effort, able to speak in complete sentences, symmetric chest movement Auscultation: Bilateral: Clear to Auscultation Cardio Rate: regular rate Rhythm: regular rhythm Heart Sounds: S1 normal, S2 normal, no gallops, no murmurs GI Inspection: normal to inspection, obesity Auscultation: normal bowel sounds Palpation: soft Skin General: no rashes or lesions noted Wounds: no wounds Diabetic Foot Pulses: L dorsalis pedis pulse: normal, R dorsalis pedis pulse: normal Monofilament test: Left foot: normal, Right foot: normal Neuro General: gait normal Cognition: normal cognition Speech: speech normal Gait: normal gait Extrem General: normal to inspection, normal capillary refill Psych Appearance: well kempt Mental Status: mental status grossly normal Mood: congruent mood Affect: normal affect Speech and Movement: speech and movement normal Attitude: cooperative Thought Process: normal Thought Content: normal Judgment: judgment good Weight and fatigue symptoms: Denies snoring Cardiopulmonary symptoms: Denies myalgias GI symptoms: Denies constipation, diarrhea, nausea/dyspepsia or vomiting Other symptoms: Denies blurry vision or change in vision Intake Vital Signs10/05/17 Height 5 ft 3 in 10/05/17 Weight: 224 lb 4 oz 10/05/17 Body Mass Index (BMI) 39.7 10/05/17 Blood Pressure 146/90 10/05/17 Blood Pressure Location Lt popliteal 10/05/17 Blood Pressure Position Sitting Intake Visit Reasons: Diabetes Mellitus Type 1 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 Accompanied by: Self Is patient in pain?: No Allergies codeine Allergy (Severe, Verified 10/05/17 10:45) Unknown Penicillins Allergy (Severe, Verified 10/05/17 10:45) Unknown Sulfa (Sulfonamide Antibiotics) Allergy (Severe, Verified 10/05/17 10:45) Unknown Medications blood sugar diagnostic strips See Dose Instructions .ROUTE .MEDSUPPLY #20 ea 05/11/17 [History Confirmed 10/05/17] levothyroxine 150 mcg tablet See Label Instructions PO .COMPLEX #30 tab 06/29/17 [Rx Confirmed 10/05/17] insulin lispro (U-100) 100 unit/mL subcutaneous solution See Label Instructions SC QDAY #30 ml 10/15/17 [Rx] Is last menstrual period known: No Post menopausal: No Patient : No Nurse's Note: blood sugars : low : 42 high : 500 PFSH Medical History Achilles bursitis (Acute) Corns and callosities (Acute) Diabetes type 1, controlled (Acute) H/O alcohol abuse (Acute) Heart murmur (Acute) Hypothyroidism (Acute) Seasonal allergies (Acute) Surgical History H/O: hysterectomy (Acute) Family History Mother Breast cancer Social History Smoking Status: Former smoker quit date: 04/13/15 second hand exposure: No alcohol intake: former substance use type: does not use ROS Const Constitutional: No anorexia, body ache, chills, fatigue, fever(s), frequent falls, decreased energy, malaise, night sweats, weakness, weight change, sleep problems, abnormal sleep pattern, change in appetite, other, headache(s) or snoring Eyes Eyes: No blurry vision, change in vision, double vision, discharge, dry eyes, bulging eyes, floaters, visual disturbances, eye pain, light sensitivity, spots in vision, tunnel vision or other ENT ENT: No abnormal hearing, ear pain, ear discharge, ear pressure, hearing loss, tinnitus, dizziness/vertigo, balance problems, nosebleed/epistaxis, nasal congestion, nasal obstruction, nose pain, sinus pressure, sinus pain, nasal discharge, post nasal drip, headache(s), facial pain, dental pain, dry mouth, bad breath, hoarseness, lip swelling, mouth lesions, mouth pain, sore throat, tongue swelling, throat swelling, other, difficulty swallowing or neck pain Resp Respiratory: No cough, change in phlegm color, chest congestion, excessive phlegm production, hemoptysis, pain on inspiration, shortness of breath, pain with cough, snoring, stridor, wheezing or other Gastro GI: No abdominal pain, belching, bloating, change in bowel habits, change in stool character, coffee ground emesis, constipation, cramping, diarrhea, heartburn, difficulty swallowing, feeling full early, excessive flatus, incontinent of stools, Vomiting blood/hematemesis, blood in stool, loose stools, Black,tarry stools, nausea/dyspepsia, pain with swallowing, vomiting or other Genitourinary-Female: No difficulty urinating, burning urination, painful urination, urinary incontinence, urinary frequency, urinary urgency, urinary hesitancy, urinary retention, blood in urine, Frequent nighttime urination/ nocturia, post void dribbling, suprapubic fullness, side pain, sexual problems, genital lesions, genital itching, hot flashes, abnormal periods, abnormal vaginal bleeding, absent period, painful periods, light periods, heavy periods, difficulty getting , painful intercourse, pelvic pain, vaginal dryness, vaginal odor, Vaginal Itching or other Musc Musculoskeletal: No abnormal walking, joint pain, back pain, deformity, joint swelling, limited range of motion, loss of height, muscle cramps, muscle weakness, decreased muscle mass, body aches, neck pain, numbness, radiating pain into limb, stiffness, tingling or other Skin Skin: No acne, hair loss, change in hair, nail changes, boil, change in skin color, dry skin, redness, excessive hair growth, yellowing of the skin, lesions, itching, rash, skin pain, skin ulcer, sores, skin swelling, wounds or other Breast Breast: No other Neuro Neurology: No frequent falls, weakness, visual disturbances, abnormal hearing, headache(s), abnormal walking, numbness or tingling Psych Psychiatric: No abnormal sleep pattern, No change in appetite Endo Endocrine: No fatigue or other Aller/Imm Allergy/Immunologic: No lip swelling, tongue swelling, throat swelling, wheezing or itchy eyes Assessment AND Plan Problems 1. Uncontrolled type 1 diabetes mellitus, with long-term current use of insulin E10.65 2. Hypothyroidism (acquired) E03.9 3. Overweight E66.3 Plan labs Control portions Food selections should be healthy Choose more low carb vegetables Avoid snacks and desserts. Drink water Exercise daily Eat more fresh foods, not canned or processed Eat more slowly Patient Instructions Monitor BP at work routinely. Plan Detail Additional Comments 1. Please schedule follow up in 3 months. 2. Lab work one week before appointment. 3. Discussed importance of regular exercise and recommend starting or continuing a regular exercise program for good health. 4. The patient was encouraged to lose weight for good health 5. The importance of monitoring blood sugar regularly was reviewed. 6. The importance of monitoring the HBA1c level regularly was reviewed. 7. The importance of prper foot care and regularly checking feet to prevent sores and loss of limbs was reviewed. 8. The importance of keeping BP at or below 130/80 to prevent stroke, heart attacks, kidney failure, blindness was reviewed. Spent approximately 45 minutes with patient with over 50% of time spent in discussion and counseling regarding medication adjustment, symptoms and treatment of hypoglycemia, diet adherence, and checking BG before driving. Coding Level of Care Code Off vis,est,level 4 Diagnoses Uncontrolled type 1 diabetes mellitus, with long-term current use of insulin E10.65 Hypothyroidism (acquired) E03.9 Overweight E66.3 Time Spent (min) 45 10/18/17 1012 <Electronically signed by Kimberly Rosales NPJasperC> Date Kimberly Rosales NP-C Cosigner Signature: Date (if applicable) CC: HEMOGLOBIN A1C Collected: 10/05/2017 Status: F Source: [place] 10:07 AM [facility] REPOSITORY TYPE CODE TESTS RESULT OUT OF RANGE REFERENCE UNITS LAB L501.9985 4.2-6.3 % High HGB A1C 8.3 Performed By: #### L501.9985, L500.4050, L500.4100 #### [facility] [address] [place], [address] COMPREHENSIVE METABOLIC Collected: 10/05/2017 Status: F Source: [facility] 10:07 [facility] REPOSITORY TYPE CODE TESTS RESULT OUT OF RANGE REFERENCE UNITS LAB L501.0100 74-106 mg/dL High GLU 258 Result Comment: Glucose result greater than or equal to 200 mg/dL suggests DIABETES MELLITUS per A.D.A. criteria. Please note revised GLUCOSE reference range effective 2017. LAB L501.1000 7-18 mg/dL Normal BUN 14 LAB L501.1100 0.55-1.02 mg/dL Normal CREAT,SERUM 0.89 Result Comment: The validity of the calculated GFR AND GFRAA in patients over 70 years has not been determined. Clinical correlation is essential. LAB L501.1110 >60 mL/min Normal EST GFR 72 Result Comment: Non- GFR Calc LAB L501.1115 >60 mL/min Normal EST GFR - AA 87 Result Comment: GFR Calc LAB L501.1300 10-20 RATIO Normal BUN/CRE 15.7 LAB L501.1500 6.4-8.2 g/dL T Normal PROT 7.1 LAB L501.1800 3.2-5.0 g/dL Normal ALB 3.3 LAB L501.1950 2.2-4.2 g/dL Normal GLOB 3.8 LAB L501.2000 0.9-2.4 RATIO Normal A/G 0.9 LAB L501.2200 8.5-10.1 mg/dL CA Normal 8.9 LAB L501.4100 15-37 U/L Low AST 12 LAB L501.4305 45-117 U/L Normal ALK P 88 LAB L501.4405 13-56 U/L Normal ALT 24 LAB L501.4600 0.20-1.00 mg/dL T Normal BILI 0.30 LAB L501.5300 136-145 mmol/L NA Normal 141 LAB L501.5600 3.5-5.1 mmol/L K Normal 4.6 LAB L501.5900 98-107 mmol/L CL Normal 104 LAB L501.6100 21.0-32.0 mmol/L Normal CO2 30.0 LAB L501.6200 5-15 Normal GAP 7 Performed By: #### L501.9985, L500.4050, L500.4100 #### [facility] [address] [place], [address] LIPID PROFILE Collected: 10/05/2017 Status: F Source: [place] 10:07 AM [facility] REPOSITORY TYPE CODE TESTS RESULT OUT OF RANGE REFERENCE UNITS LAB L501.4900 200 mg/dL Normal CHOL 173 Result Comment: <200 mg/dL Desirable 200-240 mg/dL Borderline >240 mg/dL High Risk LAB L501.5000 mg/dL Normal TRIG 88 Result Comment: The drugs N-Acetylcysteine and Metamizole may falsely depress this assay. Serum Triglycerides Reference Interval Normal <150 mg/dL Borderline high 150 - 199 mg/dL High 200 - 499 mg/dL Very High > or = 500 mg/dL LAB L501.6400 mg/dL Normal HDL 64 Result Comment: The drugs N-Acetylcysteine and Metamizole may falsely depress this assay. Reference Range HDL <40 mg/dL Low HDL Cholesterol HDL >or= 60 mg/dL High HDL Cholesterol LAB L501.6500 0-130 mg/dL Normal LDL 91 LAB L501.6600 5-40 mg/dL Normal VLDL 18 Performed By: #### L501.9985, L500.4050, L500.4100 #### [facility] [place], [address] CR KNEE 1 OR 2 Observed: 09/02/2017 Status: F Source: [facility] VIEWS LEFT 12:22 PM SYSTEM REPOSITORY Patient Name: ISADORA LAYTON Diagnostic Radiology Exam Date/Time 09/02/2017 11:13:00 EDT Exam CR Knee 1 or 2 Views Left Ordering Physician MD BLANCHARD BENJAMIN Accession Number [id number] CPT4 Codes 10154 () Reason For Exam 47 yo female with chronic L knee pain, concern for OA Report BILATERAL KNEES LEFT KNEE SERIES CLINICAL INDICATION: Osteoarthritis Standing AP and PA flexed views of the bilateral knees were performed. Jenks and lateral plain film views of the left knee were also obtained. COMPARISON: None FINDINGS: Standing AP and PA flexed views of the bilateral knees demonstrates mild loss of joint space within the medial compartment of the left knee. There is slight degenerative spurring of the tibial spines. No fracture or dislocation of the left knee is identified. Mild loss of joint space and degenerative spurring is noted within the patellofemoral compartment. No joint effusion is seen on the lateral view. Soft tissues are unremarkable. IMPRESSION: No fracture or dislocation of the left knee is identified. Mild degenerative changes. Report Dictated on Final Dictated: 09/02/2017 12:22 pm Dictating Physician: LYNN DESIR Signed Date and Time: 09/02/2017 12:23 pm Signed by: LYNN DESIR Transcribed Date and Time: 09/02/2017 12:22 CR KNEE STANDING Observed: 09/02/2017 Status: F Source: [facility] BILATERAL 12:22 PM SYSTEM REPOSITORY Patient Name: ISADORA LAYTON Diagnostic Radiology Exam Date/Time 09/02/2017 11:13:00 EDT Exam CR Knee Standing AP Bilateral Ordering Physician MD BLANCHARD BENJAMIN Accession Number [id number] CPT4 Codes 37147 () Reason For Exam 47 yo female with chronic L knee pain, concern for OA Report BILATERAL KNEES LEFT KNEE SERIES CLINICAL INDICATION: Osteoarthritis Standing AP and PA flexed views of the bilateral knees were performed. Jenks and lateral plain film views of the left knee were also obtained. COMPARISON: None FINDINGS: Standing AP and PA flexed views of the bilateral knees demonstrates mild loss of joint space within the medial compartment of the left knee. There is slight degenerative spurring of the tibial spines. No fracture or dislocation of the left knee is identified. Mild loss of joint space and degenerative spurring is noted within the patellofemoral compartment. No joint effusion is seen on the lateral view. Soft tissues are unremarkable. IMPRESSION: No fracture or dislocation of the left knee is identified. Mild degenerative changes. Report Dictated on Final Dictated: 09/02/2017 12:22 pm Dictating Physician: LYNN DESIR Signed Date and Time: 09/02/2017 12:23 pm Signed by: LYNN DESIR Transcribed Date and Time: 09/02/2017 12:22 ENDOCRINOLOGY VISIT Observed: 06/30/2017 Status: F Source: [place] REPORT 8:38 AM [facility] REPOSITORY [facility] [address] [place] [address] OFFICE VISIT Date of Service: 06/29/17 MR#: [id number] Acct: [id number] Name: ISADORA LAYTON Rep #: [id number] : 1970 Provider: Kimberly Rosales NP Age/Sex: 47/F [place] [facility] [place] Signed [facility] History of present illness Isadora Layton is a 47 year old female who presents for follow up of diabetes type 1. Diagnosed in 1996. Continues on insulin pump therapy. Changes infusion site every 3 days. Denies any issues with skin irritation or infection. Reports checking BG consistently Has recently started 670g with sensor and is using automode. Is happy with the pump and feels her control has improved. She has made some changes in her I/C ratio which has helped. Basal rate 12m=1.4 I/C ratio 12m=5.5 , 2pm=6.0 ISF=35 At time of visit: -Pt denies symptoms of hypertensive emergency (CP,SOB,DUNCAN, or blurred vision) and hypotension(dizziness or lightheadedness) -Pt denies symptoms of hypoglycemia ( sweaty, confusion, anxiety, tremor, hunger, palpitations) and hyperglycemia ( polydipsia, polyuria) -Pt denies potential medication adverse effect. Hypoglycemia Aware of hypoglycemia: When awake Able to self treat low BG: Yes Frequent low Bloo sugar: No Has supply of glucagon: Yes Diet 3 meals daily, snacks Occ skips breakfast. 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 am average 148 12n 140-170 5pm 150-170 9pm 138-150 Type: type 1 Glucose control symptoms: Reports high post-meal glucose Weight and fatigue symptoms: Denies snoring Cardiopulmonary symptoms: Reports chest pain with activity; denies myalgias, chest pain at rest, dyspnea on exertion or lightheadedness GI symptoms: Denies constipation, diarrhea, nausea/dyspepsia or vomiting Other symptoms: Denies blurry vision or change in vision Self monitoring: Yes Glucometer type: Contour next. Dietary compliance: Diabetes: good Diabetes education in past year: Yes Glucose testing: demonstrates correct use of meter, understands testing schedule Exam Const General: no acute distress, comfortable Nutritional Appearance: overweight Orientation: oriented x3 HENMT Head: normal to inspection, atraumatic Ears: hearing grossly normal bilaterally Face and sinus: normal facial exam Mouth: oral mucosae normal, moist mucous membranes Teeth and gingiva: dentition normal Eyes General: appearance normal, both eyes and all related structures Eyelids: eyelids normal Conjunctivae: conjunctivae normal Sclera: sclerae normal Pupils: PERRL Neck Neck: normal visual inspection, no lymphadenopathy Resp Effort AND Inspection: normal respiratory effort, able to speak in complete sentences, symmetric chest movement Auscultation: Bilateral: Clear to Auscultation Cardio Rate: regular rate Rhythm: regular rhythm Heart Sounds: S1 normal, S2 normal, no gallops, no murmurs GI Inspection: normal to inspection, obesity Auscultation: normal bowel sounds Palpation: soft Skin General: no rashes or lesions noted Wounds: no wounds Diabetic Foot Pulses: L dorsalis pedis pulse: normal, R dorsalis pedis pulse: normal Monofilament test: Left foot: normal, Right foot: normal Neuro General: gait normal Cognition: normal cognition Speech: speech normal Gait: normal gait Extrem General: normal to inspection, normal capillary refill Psych Appearance: well kempt Mental Status: mental status grossly normal Mood: congruent mood Affect: normal affect Speech and Movement: speech and movement normal Attitude: cooperative Thought Process: normal Thought Content: normal Judgment: judgment good Intake Vital Signs06/29/17 Height 5 ft 3 in 06/29/17 Weight: 236 lb 06/29/17 Body Mass Index (BMI) 41.8 06/29/17 Blood Pressure 126/94 06/29/17 Blood Pressure Location Lt popliteal 06/29/17 Blood Pressure Position Sitting Intake Visit Reasons: follow up 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 Accompanied by: Self Is patient in pain?: No Allergies codeine Allergy (Severe, Verified 06/29/17 14:51) Unknown Penicillins Allergy (Severe, Verified 06/29/17 14:51) Unknown Sulfa (Sulfonamide Antibiotics) Allergy (Severe, Verified 06/29/17 14:51) Unknown Medications blood sugar diagnostic strips See Dose Instructions .ROUTE .MEDSUPPLY #20 ea 05/11/17 [History Confirmed 06/29/17] insulin lispro (U-100) 100 unit/mL subcutaneous solution See Label Instructions SC QDAY #30 ml 06/29/17 [Rx Confirmed 06/29/17] levothyroxine 150 mcg tablet See Label Instructions PO .COMPLEX #30 tab 06/29/17 [Rx Confirmed 06/29/17] Is last menstrual period known: No Post menopausal: No Patient : No Nurse's Note: blood sugars : low : 50's high : 579 PFSH Medical History Achilles bursitis (Acute) Corns and callosities (Acute) Diabetes type 1, controlled (Acute) H/O alcohol abuse (Acute) Heart murmur (Acute) Hypothyroidism (Acute) Seasonal allergies (Acute) Surgical History H/O: hysterectomy (Acute) Family History Mother Breast cancer Social History Smoking Status: Former smoker quit date: 04/13/15 second hand exposure: No alcohol intake: former substance use type: does not use ROS Const Constitutional: No anorexia, body ache, chills, fever(s), decreased energy, malaise, night sweats, weight change, sleep problems, abnormal sleep pattern, change in appetite, other, fatigue, frequent falls, weakness, headache(s), excessive sweating or snoring Eyes Eyes: No blurry vision, change in vision, double vision, discharge, dry eyes, bulging eyes, floaters, eye pain, light sensitivity, spots in vision, tunnel vision, other or visual disturbances ENT ENT: No abnormal hearing, ear pain, ear discharge, ear pressure, hearing loss, tinnitus, dizziness/vertigo, balance problems, nosebleed/epistaxis, nasal congestion, nasal obstruction, nose pain, sinus pressure, sinus pain, nasal discharge, post nasal drip, facial pain, dental pain, dry mouth, bad breath, hoarseness, mouth lesions, mouth pain, sore throat, neck pain, headache(s), difficulty swallowing, other, lip swelling, tongue swelling or throat swelling Resp Respiratory: Positive for shortness of breath; no cough, change in phlegm color, chest congestion, excessive phlegm production, hemoptysis, pain on inspiration, pain with cough, stridor, other, snoring or wheezing Cardio Cardiology: No chest pain with exertion, leg pain with exertion, shortness of breath, generalized swelling, irregular heart rhythm, orthopnea, radiating jaw, neck or arm pain, fast heart rate, slow heart rate, palpitations, other, chest pain at rest, dyspnea on exertion, lightheadedness or excessive sweating Gastro GI: No abdominal pain, belching, bloating, change in bowel habits, change in stool character, coffee ground emesis, constipation, cramping, diarrhea, heartburn, feeling full early, excessive flatus, incontinent of stools, Vomiting blood/hematemesis, blood in stool, loose stools, Black,tarry stools, nausea/dyspepsia, pain with swallowing, vomiting, other or difficulty swallowing Genitourinary-Female: No difficulty urinating, burning urination, painful urination, urinary incontinence, urinary frequency, urinary urgency, urinary hesitancy, urinary retention, blood in urine, Frequent nighttime urination/ nocturia, post void dribbling, suprapubic fullness, side pain, sexual problems, genital lesions, genital itching, hot flashes, abnormal periods, abnormal vaginal bleeding, absent period, painful periods, light periods, heavy periods, difficulty getting , painful intercourse, pelvic pain, vaginal dryness, vaginal odor, Vaginal Itching or other Musc Musculoskeletal: No joint pain, back pain, deformity, joint swelling, limited range of motion, loss of height, muscle cramps, muscle weakness, decreased muscle mass, radiating pain into limb, stiffness, other, body aches, abnormal walking, numbness, tingling or neck pain Neuro Neurology: No abnormal walking, numbness, tingling, frequent falls, weakness, visual disturbances, abnormal hearing or headache(s) Psych Psychiatric: No abnormal sleep pattern, No change in appetite Endo Endocrine: No fatigue, other or excessive sweating Aller/Imm Allergy/Immunologic: No lip swelling, tongue swelling, throat swelling or wheezing Assessment AND Plan Problems 1. Uncontrolled type 1 diabetes mellitus, with long-term current use of insulin E10.65 2. Hypothyroidism (acquired) E03.9 3. Intermittent chest pain R07.9 4. Overweight E66.3 Plan Diabetes: A1c estimated 7.0 now which is significant improvemnt over her last A1c of 8.7 May need sl adjustment of breakfast I/C ratio but has recently adjusted so needs to monitor for a few days first. On julius inhibitor No statin: patient declines. Discussed siet, weight, and exercise Hypothyroid Taking medication as directed. 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 Drink water Exercise daily Eat more fresh foods, not canned or processed Eat more slowly Chest pain: intermittent, had 2 ER visits due to this. Will refer to cardiology. Orders Orders: Referrals: Medications New: Changed: Plan Detail Additional Comments 1. Please schedule follow up in 3 months. 2. Lab work one week before appointment. 3. Discussed importance of regular exercise and recommend starting or continuing a regular exercise program for good health. 4. The patient was encouraged to lose weight for good health 5. The importance of monitoring blood sugar regularly was reviewed. 6. The importance of monitoring the HBA1c level regularly was reviewed. 7. The importance of prper foot care and regularly checking feet to prevent sores and loss of limbs was reviewed. 8. The importance of keeping BP at or below 130/80 to prevent stroke, heart attacks, kidney failure, blindness was reviewed. Spent approximately 30 minutes with patient with over 50% of time spent in discussion and counseling regarding medication adjustment, symptoms and treatment of hypoglycemia, diet adherence, and checking BG before driving. Coding Level of Care Code Off vis,est,level 4 Diagnoses Uncontrolled type 1 diabetes mellitus, with long-term current use of insulin E10.65 Hypothyroidism (acquired) E03.9 Intermittent chest pain R07.9 Overweight E66.3 Time Spent (min) 30 06/30/17 0838 <Electronically signed by Kimberly FERRARI> Date Kimberly Rosales NP-C Cosigner Signature: Date (if applicable) CC: CR FOOT COMPLETE 3+ Observed: 06/06/2017 Status: F Source: [facility] LEFT 3:35 PM SYSTEM REPOSITORY Patient Name: ISADORA LAYTON Diagnostic Radiology Exam Date/Time 06/06/2017 14:21:22 EST Exam CR Foot Complete 3+ Views Left Ordering Physician MD STEPHENSON JEFFREY B Accession Number [id number] CPT4 Codes 09383 () Reason For Exam injury Report HISTORY: Pain following rolling injury. Three plain film views of the left foot were obtained. Comparisons available: None. FINDINGS: No acute fracture is seen. There is no dislocation. The articulations are preserved. There is a tiny plantar calcaneal spur and small enthesophyte in the Achilles tendon insertion. No focal soft swelling is appreciated. There is no radiopaque foreign body. IMPRESSION: No acute osseous abnormality. Report Dictated on Final Dictated: 06/06/2017 3:35 pm Dictating Physician: MD RUBI KERISTEN L Signed Date and Time: 06/06/2017 3:36 pm Signed by: MD RUBI KERISTEN L Transcribed Date and Time: 06/06/2017 3:35 CR ANKLE 3+ VIEWS Observed: 06/06/2017 Status: F Source: [employer] 3:34 PM SYSTEM REPOSITORY Patient Name: ISADORA LAYTON Diagnostic Radiology Exam Date/Time 06/06/2017 14:21:22 EST Exam CR Ankle 3+ Views Left Ordering Physician MD STEPHENSON JEFFREY B Accession Number [id number] CPT4 Codes 10054 () Reason For Exam injury Report HISTORY: Pain after rolling injury with stepping off a curb. Three plain film views of the left ankle were obtained. Comparisons available: None FINDINGS: No acute fracture is seen. There is no dislocation. The ankle mortise is intact. There is a tiny plantar calcaneal spur and small enthesophyte at the Achilles tendon insertion. No focal soft swelling is appreciated. There is no radiopaque foreign body. IMPRESSION: No acute bony abnormalities. Report Dictated on Final Dictated: 06/06/2017 3:34 pm Dictating Physician: MD RUBI KERISTEN L Signed Date and Time: 06/06/2017 3:35 pm Signed by: MD RUBI KERISTEN L Transcribed Date and Time: 06/06/2017 3:34 ALLERGIES ALLERGIES DATE TYPE / CODE NAME / CODE REACTION SEVERITY SOURCE 05/03/2018 Drug Penicillins/F Unknown [facility] Allergy/4160 [id number](RXN Hospital 46222(SNOMED ORM) Repository CT) 05/03/2018 Drug Sulfa Unknown [facility] Allergy/4160 (Sulfonamide Hospital 22818(SNOMED Antibiotics)/ Repository CT) [id number](RX NORM) 05/03/2018 Drug codeine/F0060 Unknown [facility] Allergy/4160 85590(RXNORM) Hospital [address]12(SNOMED Repository CT) ENCOUNTERS ENCOUNTERS ADMIT/DISCHARGE ACCOUNT NUMBER ADMITTING ENCOUNTER LOCATION SOURCE CLASS 05/05/2018 [id number] Ambulatory [facility] Repository 05/03/2018/05/03/19 [id number] Ambulatory B[facility]: [place] [facility] Repository 05/03/2018 [id number] Ambulatory [facility] Hospital ding:LAB Repository 04/23/2018 [id number] [facility] Repository 03/18/2018 [id number] Ambulatory [facility] Repository 01/06/2018/01/07/20 [id number] Ambulatory BMSBuilding: [place] [facility] Repository 12/11/2017 [id number] Ambulatory [facility] Repository 11/30/2017 [id number] Ambulatory [facility] WSDSRoom: 2B System WSDSBed: Repository [id number] 11/25/2017 [id number] Ambulatory [facility] Repository 11/12/2017 [id number] Ambulatory [facility] Repository 11/12/2017 [id number] Ambulatory [facility] Repository 11/03/2017 [id number] Ambulatory [facility] Repository 10/21/2017 [id number] Ambulatory [facility] Repository 10/05/2017/10/06/19 [id number] Ambulatory BMSBuilding: [place] [facility] Repository 10/05/2017 [id number] [facility] 09/02/2017 [id number] Ambulatory [facility] Repository 06/29/2017/06/30/19 [id number] Ambulatory BMSBuilding: [place] [facility] Repository 06/08/2017 [id number] Ambulatory BMSBuilding: [facility] Repository 06/06/2017 [id number] Emergency Buildin[facility] EGRoom: System [id number]: Repository [id number] PAYERS PAYERS ENCOUNTER GUARANTOR PAYER SUBSCRIBER SOURCE 05/05/2018 Isadora Wayne HowataeDOB: [place] Health HowataeDOB: Insurance:[place] [id number] System [facility] Number: [place], [place] Date: [address]Xtj: () 05/03/2018 ISADORA Leon [id number] Insurance:[facility] HOWATAEDOB: [facility] [id number] [id number] Number: Repository [id number]: [phone] [id number] [phone] (HP) Date:3372-44-60FB [address]H, [place] [address]NU: 05/03/2018 Secondary NOT GIVENUNK [place] Insurance:SELF PAY [facility] Number: Effective Repository Date:2018-05-03 05/03/2018 ISADORA R Primary ISADORA R [place] [id number] Insurance:[facility] HOWATAEDOB: [place] [id number] [id number] Number: Repository [id number]: [phone] [id number] [phone] () Date:1653-18-02IS [address]RMHJGTP, [place] [address]KE: 05/03/2018 Secondary RUSTEN M Edward [facility] Number: Repository [id number] Date:4552-06-69IZ [facility] [address] [place] [address]ID: 05/03/2018 Tertiary NOT GIVENUNK [place] Insurance:SELF PAY [facility] Number: Effective Repository Date:2018-05-03 04/23/2018 Isadora Primary Isadora How[facility]eDOB[facility] How[facility]: Insurance:[place] [id number] System [facility] Repository [place] Number: [facility] [place] Date[facility] [address]Kqh: () 04/23/2018 Secondary Christen M [facility] Insurance:Medical ByrdDO: [facility] [id number] Repository Number: Effective Date: 03/18/2018 Isadora Primary Isadora HowataeDOB: [facility] HowataeDOB: Insurance:[place]ord [id number] System [facility] Repository [place] Number: Effective [place], [place] Date: [address]Vdm: () 01/06/2018 ISADORA R Primary ISADORA R [place] [id number] Insurance:[facility] HOWATAEDOB: [facility] [id number] [facility] [place] Number: Repository [id number]: [phone] [id number] [phone] (HP) Date:3393-82-53YS [facility] [address]ZK[place], [place] [address]DH: 01/06/2018 Secondary NOT GIVENUNK [place] Insurance:SELF PAY [facility] Number: Effective Repository Date:2018-01-06 12/11/2017 Isadora Primary Isadora HowataeDOB: [facility] HowataeDOB: Insurance:Medical [id number] System [facility] Repository [place] Number: Effective [place], [place] Date: [address]Oxf: (HP) 11/30/2017 Isadora Primary Isadora HowataeDOB: [facility] HowataeDOB: Insurance:Stafford [id number] System [facility] Repository [place] Number: Effective [place], [place] Date: [address]Fmk: (HP) 11/25/2017 Isadora Primary Isadora HowataeDOB: [facility] HowataeDOB: Insurance:Stafford [id number] System [facility]: [facility] [place] Date: [address]Pub: (HP) 11/12/2017 Isadora Primary Insurance:Self Isadora HowataeDOB: [facility] HowataeDOB: [facility] Number: [id number] System Effective Date: [facility] [place] [address]Zzq: (HP) 11/12/2017 Isadora Primary Isadora HowataeDOB: [facility] HowataeDOB: Insurance:[place]ord [id number] System [facility] Repository [place] Number: [place] Date: [address]Hfh: (HP) 11/03/2017 Isadora Primary Isadora HowataeDOB: [facility] HowataeDOB: Insurance:[place]ord [id number] System [facility] [place] Number: [place] Date: [address]Kjh: (HP) 10/21/2017 Isadora Primary Isadora HowataeDOB: [facility] HowataeDOB: Insurance:[place]ord [id number] System [facility] [place] Number: Effective [place], [place] Date: [address]Vyr: (HP) 10/05/2017 ISADORA R Primary ISADORA R [place] [id number] [facility] [address] [id number], [place] Number: Repository [phone]: [phone] [id number] [phone] () Date:2430-77-34LT [facility] [id number] [place] [address]PQ: 10/05/2017 Secondary NOT GIVENUNK [place] Insurance:SELF PAY [facility] Number: Effective Repository Date:2017-10-05 10/05/2017 ISADORA R Primary ISADORA R [place] [id number] [facility]: [address] [id number], [place] Number: Repository [id number]: [phone] [id number] [phone] (HP) Date:4945-11-74PH [id number] [place] [phone]: 10/05/2017 Secondary NOT GIVENUNK [place] Insurance:SELF PAY [facility] Number: Effective Repository Date:2017-10-05 09/02/2017 Isadora Primary Isadora HowataeDOB: [facility] HowataeDOB: Insurance:Medical [id number] System [facility] Repository [place] Number: [place] Date: [address]Iqp: () 06/29/2017 ISADORARicky [id number] Primary ISADORA HOWATAEDOB: [place] Insurance:MEDICAL [id number] [facility] [id number]: ([phone]) Number: Repository [phone] () [id number] Date:7422-31-19OQ [address] [address]QC: 06/29/2017 Secondary NOT GIVENUNK [place] Insurance:SELF PAY [facility] Number: Effective Repository Date:2017-06-29 06/08/2017 Isadoraricky [id number] Primary Insurance:SELF NOT GIVENUNK [facility] PAY [place] Number: Effective Hospital [id number]: [phone]) Date:2017-04-14 Repository [phone] () 06/06/2017 Isadora Primary Isadora HowataeDOB: [facility] HowataeDOB: Insurance:Medical [id number] System [facility] Number: Effective [place], [place] Date: [address]Hlr: ()
== END ==
PROVIDERS: Referring Provider Nurse Practitioner; Visit Provider Nurse Practitioner
DX: E10.65 Type 1 diabetes mellitus with hyperglycemia (principal)
CPT/HCPCS: 36415; 80053; 80061; 82043; 82570; 83036; 84439; 84443